=== PATIENT | male | born 1990 | race African-American/Black ===

== ENCOUNTER 2017-02-20 10:40 | Emergency (ER) | payer MEDICAID ==
[~2017-02-20] VITALS: Ht 160 cm; Wt 65.0 kg
[~2017-02-20 10:40] MED LIST: Z.0.NO CURRENT MEDS
[2017-02-20 10:42] VITALS: BP 102/59; PULSE 108; RESP 13; TEMP 98.8; O2SAT 98
--- NOTE | 2017-02-20 15:59 | EKG ---
Date Performed: 02/20/2017 Time Performed: 10:54:49 PTAGE: 26 years EKG: Sinus rhythm WITH SHORT OK INTERVAL MARKED LEFT AXIS DEVIATION ABNORMAL ECG PREVIOUS TRACING : 02/07/2016 00.42 Compared to prior tracing no significant change DOCTOR: Lukas Forte Interpretating Date/Time 02/20/2017 15:58:47
[2017-03-14] MEDS ORDERED: LEVA500T20 PO (04:02)
== END 2017-02-20 18:38 | disposition left against medical advice (07) ==
LOC: NETRI 10:40
DX: R07.9 Chest pain, unspecified (principal); M54.9 Dorsalgia, unspecified; Z53.21 Procedure and treatment not carried out due to patient leaving prior to being seen by health care provider
CPT/HCPCS: 93005; 99281

== ENCOUNTER 2017-02-22 12:03 | Emergency (ER) | payer MEDICAID ==
[2017-02-22] MEDS ORDERED: IOHEXOL 350 MG/ML 10 ML VIAL (for RAD DIAG) IVCONTRAST ONE (12:04)
[2017-02-22 12:11] VITALS: BP 117/69; PULSE 77; RESP 22; O2SAT 100
--- NOTE | 2017-02-22 12:22 | PD ---
HPI Chief Complaint: Respiratory Symptoms Time Seen by Provider: 12:12 Travel History International Travel<30 days: No Contact w/Intl Traveler<30days: No Traveled to known affect area: No History of Present Illness HPI Patient comes in via EMS/shortness of breath began 3 days ago. Patient states he went to a different hospital received breathing treatments and steroids there that seemed to help. Patient reports is given a prescription for the same , but has not gotten filled yet. Patient states that he started getting worse while at work today. Patient received 125 mg of Solu-Medrol and 2 albuterol treatments by EMS en route that seemed to help. Patient reports occasionally having a productive cough for the past 3 days. Patient denies anything making this worse. Denies any fevers, nausea, vomiting, chest pain, abdominal pain, loss or change in bowel or bladder, or headaches. PFSH Past Medical History Neurologic: Yes (stroke at age 3) Immunizations Current: Yes Past Surgical History Body Medical Devices: LEFT EAR REPAIR Ear Surgery: Yes (MASTOID SURGERY A CHILD) Social History Alcohol Use: No Tobacco Use: No Substance Use: Yes (marijuana) Allergies-Medications (Allergen,Severity, Reaction): Coded Allergies: penicillin G (Unverified Allergy, Severe, Anaphylaxis, 02/22/17) Reported Meds & Prescriptions Reported Meds & Active Scripts Active Medrol Dosepak (Methylprednisolone) 4 Mg Dspk 4 Mg PO DIRECTED Per Pharmacist direction Ventolin Hfa 18 GM Inh (Albuterol Sulfate) 90 Mcg/Act Aer 2 Puff INH Q4-6H PRN Zithromax Z-Rigoberto (Azithromycin) 250 Mg Dspk 250 Mg PO DIRECTED 500 MG (2 tabs) day 1, then 1 tab days 2-5. Review of Systems Except as stated in HPI: all other systems reviewed are Neg Physical Exam Narrative GENERAL: Well-developed, well nourished, in no acute distress, and non-ill appearing. SKIN: Focused skin assessment warm and dry. HEAD: Atraumatic. Normocephalic. EYES: Pupils equal and round. EOMI. No scleral icterus. No injection or drainage. ENT: No nasal bleeding or discharge. Mucous membranes pink and moist. NECK: Trachea midline. No JVD. Supple. No nuclear rigidity. CARDIOVASCULAR: Regular rate and rhythm. No murmur appreciated. RESPIRATORY: No accessory muscle use. No respiratory distress. Scant wheezing noted throughout. Breath sounds equal bilaterally. Speaking in full sentences without difficulty. MUSCULOSKELETAL: No obvious deformities. No clubbing. No cyanosis. No edema. Full range of motion. NEUROLOGICAL: Awake and alert. No obvious cranial nerve deficits. Motor grossly within normal limits. Normal speech. PSYCHIATRIC: Appropriate mood and affect; insight and judgment normal. Data Data Last Documented VS Vital Signs Date Time Temp Pulse Resp B/P (MAP) Pulse Ox O2 Delivery O2 Flow Rate FiO2 02/22/17 15:08 90 18 115/74 (88) 98 02/22/17 13:02 Room Air Orders Orders Chest, Single Ap (02/22/17 ) Albuterol-Ipratropium Neb (Duoneb Neb) (02/22/17 12:30) Electrocardiogram (02/22/17 13:00) Basic Metabolic Panel (Bmp) (02/22/17 13:00) Ckmb (Isoenzyme) Profile (02/22/17 13:00) Complete Blood Count With Diff (02/22/17 13:00) Magnesium (Mg) (02/22/17 13:00) Prothrombin Time / Inr (Pt) (02/22/17 13:00) Act Partial Throm Time (Ptt) (02/22/17 13:00) Troponin I (02/22/17 13:00) Ecg Monitoring (02/22/17 13:00) Bilateral Bp Monitoring (02/22/17 13:00) Iv Access Insert/Monitor (02/22/17 13:00) Oximetry (02/22/17 13:00) Oxygen Administration (02/22/17 13:00) Sodium Chloride 0.9% Flush (Ns Flush) (02/22/17 13:00) Ct Pulmonary Angiogram (02/22/17 13:00) CKMB (02/22/17 12:40) CKMB% (02/22/17 12:40) Iohexol 350 Inj (Omnipaque 350 Inj) (02/22/17 12:04) Labs Laboratory Tests Test 02/22/17 12:40 White Blood Count 6.8 TH/MM3 Red Blood Count 4.87 MIL/MM3 Hemoglobin 14.1 GM/DL Hematocrit 42.1 % Mean Corpuscular Volume 86.4 FL Mean Corpuscular Hemoglobin 29.0 PG Mean Corpuscular Hemoglobin Concent 33.6 % Red Cell Distribution Width 13.4 % Platelet Count 189 TH/MM3 Mean Platelet Volume 7.2 FL Neutrophils (%) (Auto) 56.3 % Lymphocytes (%) (Auto) 26.3 % Monocytes (%) (Auto) 15.5 % Eosinophils (%) (Auto) 1.0 % Basophils (%) (Auto) 0.9 % Neutrophils # (Auto) 3.8 TH/MM3 Lymphocytes # (Auto) 1.8 TH/MM3 Monocytes # (Auto) 1.0 TH/MM3 Eosinophils # (Auto) 0.1 TH/MM3 Basophils # (Auto) 0.1 TH/MM3 CBC Comment DIFF FINAL Differential Comment Prothrombin Time 11.8 SEC Prothromb Time International Ratio 1.1 RATIO Activated Partial Thromboplast Time 29.9 SEC Blood Urea Nitrogen 13 MG/DL Creatinine 1.46 MG/DL Random Glucose 82 MG/DL Calcium Level 9.3 MG/DL Magnesium Level 1.8 MG/DL Sodium Level 137 MEQ/L Potassium Level 3.6 MEQ/L Chloride Level 103 MEQ/L Carbon Dioxide Level 22.6 MEQ/L Anion Gap 11 MEQ/L Estimat Glomerular Filtration Rate 71 ML/MIN Total Creatine Kinase 128 U/L Creatine Kinase MB LESS THAN 0.5 NG/ML Troponin I LESS THAN 0.02 NG/ML MDM Medical Decision Making Medical Screen Exam Complete: Yes Emergency Medical Condition: Yes Interpretation(s) Chest x-ray read by the radiologist shows: Hyperinflation more notably in the lower lobes. No evidence for an infiltrate. EKG reviewed by Dr. Becerra shows sinus rhythm with ventricular rate of 75. No STEMI. CTA read by the radiologist shows: Patchy mild nodular infiltrates bilaterally. No evidence of pulmonary embolism. Mild probable reactive hilar sharif enlargement, right worse than left Differential Diagnosis Pneumonia, bronchitis, COPD exacerbation, asthma exacerbation, other Narrative Course Patient was seen and examined. Chest x-ray and DuoNeb was ordered. 1300 patient reassessed after receiving a DuoNeb treatment reports feeling like the DuoNeb made his shortness of breath worse and feels that he struggling to breathe. O2 sat noted to be 100% on room air. We'll check additional testing to rule out PE. Patients symptom complex is consistent with bronchitis/Pneumonia. The patient is non-ill appearing and is in no respiratory distress and comfortable. The patient moves air well and oxygen saturations are normal. CTA was negative for PE, but revealed evidence of pneumonia. The patient looks great and has no significant co morbidities and may be discharged home on outpatient therapy. Plan of care and management were discussed with the patient who agreed with plan. The patient was instructed to follow up with their physician and instructed to return if worsens, progressively worsening shortness of breath or difficulty breathing, persistent fever, chest pains or discomfort, inability to keep medication or fluids down with or without vomiting, or as needed or unable to establish follow up within a timely manner. Patient in no obvious distress upon re-evaluation. All pertinent laboratory/ Radiology result(s) discussed with patient/family. Discussed patient with Dr. Becerra prior discharge, who is in agreement with plan of care and disposition. Patient was asked if they wanted to speak to my attending, which the patient did not wish to do at this time. Any questions/concerns in reference to patient diagnosis/condition discussed and clarified prior to patient's discharge. Reinforced sheer importance of close follow up with patient 's primary physician or primary care clinic. Instructed patient to return to ED immediately, if symptoms return/worsen. Patient showed understanding of above instructions. Further instructions and recommendations were detailed in discharge paperwork. Patient ambulated without difficulty out of ED at discharge. Diagnosis Primary Impression: Bilateral pneumonia Qualified Codes: J18.9 - Pneumonia, unspecified organism Additional Impression: Lymphoid hyperplasia, reactive Referrals: [facility] Patient Instructions: Community Acquired Pneumonia (ED), General Instructions Additional Instructions: Follow-up with your primary care physician next week for evaluation. Take all medication as prescribed. Use [id number] Tylenol and/or ibuprofen as needed for pain and/or fever. Follow instructions on the packaging. Return to the emergency department if symptoms get worse. Med/Other Pt SpecificInfo: Prescription(s) given Scripts Methylprednisolone Dosepak (Medrol Dosepak) 4 Mg Dspk 4 MG PO DIRECTED, #1 DSPK 0 Refills Per Pharmacist direction Prov: Gómez Becerra MD 02/22/17 Albuterol 18 GM Inh (Ventolin Hfa 18 GM Inh) 90 Mcg/Act Aer 2 PUFF INH Q4-6H Y for SHORTNESS OF BREATH, #1 INHALER 0 Refills Prov: Gómez Becerra MD 02/22/17 Azithromycin (Zithromax Z-Rigoberto) 250 Mg Dspk 250 MG PO DIRECTED for Infection, #1 DSPK 0 Refills 500 MG (2 tabs) day 1, then 1 tab days 2-5. Prov: Gómez Becerra MD 02/22/17 Disposition: 01 DISCHARGE HOME Condition: Stable Graham Tobar Feb 22, 2017 12:22
[2017-02-22] MEDS ORDERED: RESP: ALBUTEROL 2.5 MG/IPRATROPIUM 0.5 MG NEB (SCH) INH ONE (12:30)
--- NOTE | 2017-02-22 12:52 | RADRPT ---
EXAM DATE/TIME: 02/22/2017 12:42 [facility] COMPARISON: No previous studies available for comparison. INDICATIONS : Chest pain. MEDICAL HISTORY : None. SURGICAL HISTORY : None. ENCOUNTER: Initial ACUITY: 3 days PAIN SCORE: 8/10 LOCATION: Bilateral chest FINDINGS: PA and lateral views of the chest demonstrates hyperinflation more notably in the lower lobes. No infiltrates are seen. Heart is normal in size. The mediastinal contours are unremarkable. Osseous structures are intact. CONCLUSION: Hyperinflation more notably in the lower lobes. No evidence for an infiltrate. Dmitriy Fair MD on February 22, 2017 at 12:50 Board Certified Radiologist. This report was verified electronically.
[2017-02-22 13:00] VITALS: BP_SYST 117; BP_SYST 118; BP_DIAS 79; BP_DIAS 82; PULSE 94; RESP 22; O2SAT 100
[2017-02-22] MEDS ORDERED: SODIUM CHLORIDE 0.9% FLUSH 10 ML FLUSH IVF PRN (13:00)
[2017-02-22 13:02] VITALS: O2SAT 99
[2017-02-22 13:23] LABS: AUTOMATED NEUTROPHIL # 3.8 TH/MM3 (1.8-7.7); BASOPHIL # 0.1 TH/MM3 (0-0.2); BASOPHIL % 0.9 % (0.0-2.0); EOSINOPHIL # 0.1 TH/MM3 (0-0.4); HEMATOCRIT 42.1 % (39.0-51.0); HEMO FLAGS DIFF FINAL; LYMPH % 26.3 % (9.0-44.0); LYMPHOCYTE # 1.8 TH/MM3 (1.0-4.8); MEAN CELL VOLUME 86.4 FL (80.0-100.0); MEAN CORPUSCULAR HGB CONC 33.6 % (32.0-36.0); MONO % 15.5 % (0.0-8.0); NEUT % 56.3 % (16.0-70.0); PLATELET COUNT 189 TH/MM3 (150-450); RED BLOOD COUNT 4.87 MIL/MM3 (4.50-5.90); RED CELL DISTRIBUTION WIDTH 13.4 % (11.6-17.2); WHITE BLOOD COUNT 6.8 TH/MM3 (4.0-11.0)
[2017-02-22 13:31] LABS: APTT (PATIENT) 29.9 SEC (24.3-30.1); INTERNATIONAL NORMALIZED RATIO 1.1 RATIO; PROTHROMBIN TIME - PATIENT 11.8 SEC (9.8-11.6)
[2017-02-22 13:50] LABS: CREATINE KINASE 128 U/L (39-308)
[2017-02-22 13:51] LABS: ANION GAP 11 MEQ/L (5-15); BICARBONATE 22.6 MEQ/L (21.0-32.0); BLOOD UREA NITROGEN 13 MG/DL (7-18); CHLORIDE 103 MEQ/L (98-107); GLOMERULAR FILTRATION RATE 71 ML/MIN (>89); MAGNESIUM 1.8 MG/DL (1.5-2.5); POTASSIUM 3.6 MEQ/L (3.5-5.1); SODIUM (NA) 137 MEQ/L (136-145)
[2017-02-22 14:02] LABS: CKMB LESS THAN 0.5 NG/ML (0.5-3.6)
--- NOTE | 2017-02-22 14:30 | RADRPT ---
EXAM DATE/TIME: 02/22/2017 14:01 [facility] COMPARISON: No previous studies available for comparison. INDICATIONS : Short of breath for three days. IV CONTRAST: 50 cc Omnipaque 350 (iohexol) IV RADIATION DOSE: 20.40 CTDIvol (mGy) MEDICAL HISTORY : Stroke. SURGICAL HISTORY : None. ENCOUNTER: Initial ACUITY: 3 days PAIN SCALE: 5/10 LOCATION: Bilateral chest TECHNIQUE: Volumetric scanning of the chest was performed using a pulmonary embolism protocol MIP images were re constructed. Using automated exposure control and adjustment of the mA and/or kV according to patien t size, radiation dose was kept as low as reasonably achievable to obtain optimal diagnostic quality images. DICOM format image data is available electronically for review and comparison. Follow-up recommendations for detected pulmonary nodules are based at a minimum on nodule size and pa tient risk factors according to Fleischner Society Guidelines. FINDINGS: PULMONARY ARTERIES: No filling defects are seen in the pulmonary arteries through the segmental level. LUNGS: There is patchy mild nodular infiltrate present mainly in the perihilar regions and lower lung zones. No consolidative airspace infiltrate. PLEURAE: There is no pleural thickening or pleural effusion. MEDIASTINUM: There is mild prominence of the hilar sharif tissues, right worse than left. No central mediastinal ad enopathy is appreciated. MUSCULOSKELETAL: Within normal limits for patient age. MISCELLANEOUS: The visualized upper abdominal organs demonstrate no acute abnormality. CONCLUSION: Patchy mild nodular infiltrates bilaterally. No evidence of pulmonary embolism. Mild probable reactiv e hilar sharif enlargement, right worse than left Govind Carlson MD on February 22, 2017 at 14:24 Board Certified Radiologist. This report was verified electronically.
[2017-02-22] MEDS ORDERED: MEDR4PAK PO (14:41)
[2017-02-22] MEDS ORDERED: ZITHTAB PO (14:41)
[2017-02-22] MEDS ORDERED: VENTAER INH (14:41)
[2017-02-22 15:08] VITALS: BP 115/74
--- NOTE | 2017-02-23 14:49 | EKG ---
Date Performed: 02/22/2017 Time Performed: 12:27:37 PTAGE: 26 years EKG: Sinus rhythm WITH SINUS ARRHYTHMIA WITH SHORT NC INTERVAL POSSIBLE RIGHT VENTRICULAR CONDUCTION DELAY LEFT ANTERI OR FASCICULAR BLOCK ABNORMAL ECG PREVIOUS TRACING : 02/20/2017 10.54 Compared to prior tracing no significant change DOCTOR: Nick Holguin Interpretating Date/Time 02/23/2017 14:47:55
[2017-03-14] MEDS ORDERED: LEVA500T20 PO (04:02)
== END 2017-02-22 15:22 | disposition home or self-care (01) ==
LOC: NEPC 12:03
DX: J18.9 Pneumonia, unspecified organism (principal); R59.9 Enlarged lymph nodes, unspecified; R94.31 Abnormal electrocardiogram [ECG] [EKG]
CPT/HCPCS: 71010; 71275; 80048; 82550; 82552; 83735; 84484; 85025; 85610; 85730; 93005; 94664; 99285; Q9967

== ENCOUNTER 2017-02-28 23:37 | Emergency (ER) | payer MEDICAID ==
[~2017-02-28] VITALS: Ht 160 cm; Wt 62.0 kg
[~2017-02-28 23:37] MED LIST changes: +MEDR4PAK PO; +VENTAER INH; -Z.0.NO CURRENT MEDS; +ZITHTAB PO
[2017-02-28 23:40] VITALS: BP 118/63; PULSE 118; RESP 18; TEMP 98.9; O2SAT 98
[2017-03-01 00:25] VITALS: BP 120/71; PULSE 90; RESP 18; O2SAT 99
[2017-03-01] MEDS ORDERED: SODIUM CHLOR 0.9% 1000 ML INJ 1,000 ML IV ONE (00:45)
[2017-03-01] MEDS ORDERED: SODIUM CHLORIDE 0.9% FLUSH 10 ML FLUSH IVF PRN (00:45)
--- NOTE | 2017-03-01 01:05 | RADRPT ---
EXAM DATE/TIME: 03/01/2017 00:50 [facility] COMPARISON: CHEST SINGLE AP, February 22, 2017, 12:42. INDICATIONS : Shortness of breath. MEDICAL HISTORY : None. SURGICAL HISTORY : None. ENCOUNTER: Initial ACUITY: 1 day PAIN SCORE: 0/10 LOCATION: Bilateral chest FINDINGS: A single view of the chest demonstrates the lungs to be symmetrically aerated without evidence of mas s, infiltrate or effusion. The cardiomediastinal contours are unremarkable. Osseous structures are intact. CONCLUSION: No acute disease. Govind Carlson MD on March 01, 2017 at 1:03 Board Certified Radiologist. This report was verified electronically.
[2017-03-01 01:12] LABS: AUTOMATED NEUTROPHIL # 14.6 TH/MM3 (1.8-7.7); BASOPHIL % 0.1 % (0.0-2.0); EOSINOPHIL % 0.2 % (0.0-4.0); HEMATOCRIT 41.7 % (39.0-51.0); HEMO FLAGS DIFF FINAL; LYMPH % 9.5 % (9.0-44.0); LYMPHOCYTE # 1.7 TH/MM3 (1.0-4.8); MEAN CELL VOLUME 86.8 FL (80.0-100.0); MEAN CORPUSCULAR HEMOGLOBIN 28.8 PG (27.0-34.0); MEAN CORPUSCULAR HGB CONC 33.1 % (32.0-36.0); MONO % 7.1 % (0.0-8.0); NEUT % 83.1 % (16.0-70.0); PLATELET COUNT 303 TH/MM3 (150-450); RED BLOOD COUNT 4.81 MIL/MM3 (4.50-5.90); RED CELL DISTRIBUTION WIDTH 13.4 % (11.6-17.2); WHITE BLOOD COUNT 17.5 TH/MM3 (4.0-11.0)
--- NOTE | 2017-03-01 01:21 | PD ---
HPI Chief Complaint: Chest Pain Time Seen by Provider: 00:33 Travel History International Travel<30 days: No Contact w/Intl Traveler<30days: No Traveled to known affect area: No History of Present Illness HPI 26-year-old male presents to the emergency department by private transportation for complaint of shaking chill. Patient recently diagnosed with pneumonia and completed a course of azithromycin. Patient also was given Ventolin inhaler and Medrol Dosepak. Patient denies fever. Patient states that he feels improved at this time but not back to normal. Patient denies other concerns or complaints. Patient is unable to identify exacerbating or alleviating factors. 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3, decompressed nerves) Diminished Hearing: No Neurologic: Yes (stroke at age 3) Immunizations Current: Yes Past Surgical History Body Medical Devices: LEFT EAR REPAIR Ear Surgery: Yes (MASTOID SURGERY A CHILD) Social History Alcohol Use: No Tobacco Use: No Substance Use: Yes (marijuana) Allergies-Medications (Allergen,Severity, Reaction): Coded Allergies: penicillin G (Unverified Allergy, Severe, Anaphylaxis, 02/28/17) Reported Meds & Prescriptions Reported Meds & Active Scripts Active Ventolin Hfa 18 GM Inh (Albuterol Sulfate) 90 Mcg/Act Aer 2 Puff INH Q4-6H PRN Review of Systems Except as stated in HPI: all other systems reviewed are Neg General / Constitutional: Positive: Chills, No: Fever HENT: No: Congestion Cardiovascular: Positive: Chest Pain or Discomfort Respiratory: Positive: Shortness of Breath Gastrointestinal: No: Abdominal Pain Genitourinary: No: Flank Pain Skin: No Rash Neurologic: No: Weakness Psychiatric: No: Anxiety Hematologic/Lymphatic: No: Lymph Node Enlargement Physical Exam Narrative GENERAL: Well-developed well-nourished male in no acute distress no respiratory distress SKIN: Warm and dry. HEAD: Normocephalic. EYES: No scleral icterus. No injection or drainage. NECK: Supple, trachea midline. No JVD or lymphadenopathy. CARDIOVASCULAR: Regular rate and rhythm without murmurs, gallops, or rubs. RESPIRATORY: Breath sounds equal bilaterally. No accessory muscle use. GASTROINTESTINAL: Abdomen soft, non-tender, nondistended. MUSCULOSKELETAL: No cyanosis, or edema. BACK: Nontender without obvious deformity. No CVA tenderness. Data Data Last Documented VS Vital Signs Date Time Temp Pulse Resp B/P (MAP) Pulse Ox O2 Delivery O2 Flow Rate FiO2 03/01/17 01:37 98.0 69 18 108/66 (80) 100 Room Air Orders Orders Complete Blood Count With Diff (03/01/17 00:33) Comprehensive Metabolic Panel (03/01/17 00:33) Troponin I (03/01/17 00:33) Iv Access Insert/Monitor (03/01/17 00:33) Electrocardiogram (03/01/17 00:33) Ecg Monitoring (03/01/17 00:33) Oximetry (03/01/17 00:33) Oxygen Administration (03/01/17 00:33) Chest, Single Ap (03/01/17 00:33) Sodium Chloride 0.9% Flush (Ns Flush) (03/01/17 00:45) Blood Culture (03/01/17 00:33) Lactic Acid (03/01/17 00:33) Sodium Chlor 0.9% 1000 Ml Inj (Ns 1000 M (03/01/17 00:45) Ketorolac Inj (Toradol Inj) (03/01/17 01:30) Urinalysis - C+S If Indicated (03/01/17 01:21) Doxycycline (Vibramycin) (03/01/17 02:15) Sodium Chlorid 0.9% 500 Ml Inj (Ns 500 M (03/01/17 02:15) Ed Discharge Order (03/01/17 03:37) Labs Laboratory Tests Test 03/01/17 00:45 03/01/17 01:20 White Blood Count 17.5 TH/MM3 Red Blood Count 4.81 MIL/MM3 Hemoglobin 13.8 GM/DL Hematocrit 41.7 % Mean Corpuscular Volume 86.8 FL Mean Corpuscular Hemoglobin 28.8 PG Mean Corpuscular Hemoglobin Concent 33.1 % Red Cell Distribution Width 13.4 % Platelet Count 303 TH/MM3 Mean Platelet Volume 6.7 FL Neutrophils (%) (Auto) 83.1 % Lymphocytes (%) (Auto) 9.5 % Monocytes (%) (Auto) 7.1 % Eosinophils (%) (Auto) 0.2 % Basophils (%) (Auto) 0.1 % Neutrophils # (Auto) 14.6 TH/MM3 Lymphocytes # (Auto) 1.7 TH/MM3 Monocytes # (Auto) 1.2 TH/MM3 Eosinophils # (Auto) 0.0 TH/MM3 Basophils # (Auto) 0.0 TH/MM3 CBC Comment DIFF FINAL Differential Comment Blood Urea Nitrogen 19 MG/DL Creatinine 1.20 MG/DL Random Glucose 131 MG/DL Total Protein 7.8 GM/DL Albumin 4.0 GM/DL Calcium Level 8.8 MG/DL Alkaline Phosphatase 83 U/L Aspartate Amino Transf (AST/SGOT) 14 U/L Alanine Aminotransferase (ALT/SGPT) 28 U/L Total Bilirubin 0.2 MG/DL Sodium Level 138 MEQ/L Potassium Level 3.4 MEQ/L Chloride Level 104 MEQ/L Carbon Dioxide Level 27.4 MEQ/L Anion Gap 7 MEQ/L Estimat Glomerular Filtration Rate 89 ML/MIN Lactic Acid Level 1.5 mmol/L Troponin I LESS THAN 0.02 NG/ML Urine Color LIGHT-YELLOW Urine Turbidity CLEAR Urine pH 5.5 Urine Specific [place] 1.005 Urine Protein NEG mg/dL Urine Glucose (UA) NEG mg/dL Urine Ketones NEG mg/dL Urine Occult Blood NEG Urine Nitrite NEG Urine Bilirubin NEG Urine Urobilinogen LESS THAN 2.0 MG/DL Urine Leukocyte Esterase NEG Urine RBC LESS THAN 1 /hpf Urine WBC 1 /hpf Microscopic Urinalysis Comment CULT NOT INDICATED MDM Medical Decision Making Medical Screen Exam Complete: Yes Emergency Medical Condition: Yes Medical Record Reviewed: Yes Interpretation(s) EKG: Normal sinus rhythm rate 66-ventricular conduction delay no acute ST elevation or injury pattern or ectopy noted Differential Diagnosis Pneumonia, bronchitis, PE, pneumothorax, atypical chest pain, viral syndrome, dehydration Narrative Course Patient placed on group activities aide pulse oximetry IV access obtained specimens collected and sent for resulting patient given fluid hydration Patient resting comfortably given additional bolus of normal saline and oral antibiotic Patient reports asymptomatic no shortness of breath no chest discomfort no wheezing no chills no myalgias or arthralgias. Patient is stable for outpatient management and follow-up with primary care provider. Sepsis Criteria SIRS Criteria (2 or more): Heart rate over 90, WBC > 34228, < 4000 or > 10% bands Diagnosis Primary Impression: Bronchitis Additional Impression: Pneumonia Referrals: Primary Care Physician call for appointment Patient Instructions: General Instructions Additional Instructions: Increase fluid hydration No work 2 days Monitor temperature every 4 hours with thermometer and take as needed acetaminophen/Tylenol every 4 hours for fever 100.4 days Fahrenheit or greater; may take ibuprofen/Advil 600 mg as often as every 6 hours for fever 100.4F or greater Complete the course of antibiotic as prescribed Return to the emergency department for pain fever or any concerns Follow-up with your primary care provider Continue to use inhaler as prescribed as needed for wheezing or shortness of breath. Med/Other Pt SpecificInfo: Prescription(s) given Scripts Doxycycline Hyclate (Doxycycline Hyclate) 100 Mg Cap 100 MG PO BID for Infection for 5 Days, #10 CAP 0 Refills Prov: Dhara Cannon MD 03/01/17 Disposition: 01 DISCHARGE HOME Condition: Stable Dhara Cannon MD Mar 01, 2017 01:21
[2017-03-01 01:25] LABS: ALT (GPT) 28 U/L (12-78); ANION GAP 7 MEQ/L (5-15); AST (GOT) 14 U/L (15-37); BICARBONATE 27.4 MEQ/L (21.0-32.0); BLOOD UREA NITROGEN 19 MG/DL (7-18); CHLORIDE 104 MEQ/L (98-107); GLOMERULAR FILTRATION RATE 89 ML/MIN (>89); POTASSIUM 3.4 MEQ/L (3.5-5.1); SODIUM (NA) 138 MEQ/L (136-145)
[2017-03-01 01:30] LABS: ALKALINE PHOSPHATASE 83 U/L (45-117); TOTAL BILIRUBIN ADULT 0.2 MG/DL (0.2-1.0)
[2017-03-01] MEDS ORDERED: KETOROLAC TROMETHAMINE 30 MG/ML (IVP) VIAL IV PUSH ONE (01:30)
[2017-03-01 01:37] VITALS: BP 108/66; PULSE 69; RESP 18; TEMP 98; O2SAT 100
[2017-03-01 01:53] LABS: BLOOD, URINE NEG (NEG); GLUCOSE,URINE NEG (NEG); KETONE, URINE NEG (NEG); NITRITE,URINE NEG (NEG); PH, URINE 5.5 (5.0-8.5); URINE COLOR LIGHT-YELLOW (YELLW/STRAW)
[2017-03-01 01:54] LABS: COMMENT (UR) CULT NOT INDICATED; CULTURE IF INDICATED CULT NOT INDICATED
[2017-03-01] MEDS ORDERED: DOXYCYCLINE HYCLATE 100 MG CAP PO ONE (02:15)
[2017-03-01] MEDS ORDERED: SODIUM CHLORID 0.9% 500 ML INJ 500 ML IV ONE (02:15)
[2017-03-01] MEDS ORDERED: DOXY100C PO (03:39)
--- NOTE | 2017-03-01 15:05 | EKG ---
Date Performed: 03/01/2017 Time Performed: 01:10:15 PTAGE: 26 years EKG: Sinus rhythm WITH SHORT NE INTERVAL POSSIBLE RIGHT VENTRICULAR CONDUCTION DELAY BORDERLINE ECG PREVIOUS TRACING : 02/22/2017 12.27 Compared to prior tracing no significant change DOCTOR: Omar Pack Interpretating Date/Time 03/01/2017 15:04:01
== END 2017-03-01 04:07 | disposition home or self-care (01) ==
LOC: NEPC 23:37
DX: J40 Bronchitis, not specified as acute or chronic (principal)
CPT/HCPCS: 71010; 80053; 81001; 83605; 84484; 85025; 87040; 93005; 96361; 96374; 99285; J1885; J7030; J7040

== ENCOUNTER 2017-03-14 00:08 | Emergency (ER) | payer MEDICAID, OTHER ==
[~2017-03-14] VITALS: Ht 160 cm; Wt 62.2 kg
[~2017-03-14 00:08] MED LIST changes: +DOXY100C PO; -MEDR4PAK PO; -ZITHTAB PO
[2017-03-14 00:09] VITALS: BP 142/79; PULSE 91; RESP 15; TEMP 98.4; O2SAT 99
[2017-03-14] MEDS ORDERED: SODIUM CHLORIDE 0.9% FLUSH 10 ML FLUSH IVF PRN (02:30)
[2017-03-14] MEDS ORDERED: KETOROLAC TROMETHAMINE 30 MG/ML (IVP) VIAL IV PUSH ONE (02:30)
[2017-03-14 03:03] LABS: BASOPHIL # 0.1 TH/MM3 (0-0.2); EOSINOPHIL # 0.1 TH/MM3 (0-0.4); EOSINOPHIL % 2.1 % (0.0-4.0); HEMATOCRIT 40.3 % (39.0-51.0); HEMO FLAGS DIFF FINAL; LYMPH % 23.6 % (9.0-44.0); LYMPHOCYTE # 1.4 TH/MM3 (1.0-4.8); MEAN CORPUSCULAR HEMOGLOBIN 29.6 PG (27.0-34.0); MEAN CORPUSCULAR HGB CONC 33.6 % (32.0-36.0); MONO % 8.7 % (0.0-8.0); NEUT % 64.6 % (16.0-70.0); PLATELET COUNT 209 TH/MM3 (150-450); RED BLOOD COUNT 4.58 MIL/MM3 (4.50-5.90); RED CELL DISTRIBUTION WIDTH 13.7 % (11.6-17.2); WHITE BLOOD COUNT 6.1 TH/MM3 (4.0-11.0)
--- NOTE | 2017-03-14 03:13 | RADRPT ---
EXAM DATE/TIME: 03/14/2017 02:45 [facility] COMPARISON: CHEST SINGLE AP, March 01, 2017, 0:50. CT PULMONARY ANGIOGRAM, February 22, 2017, 14:01. INDICATIONS : Chest pain. Tachycardia. MEDICAL HISTORY : Stroke. SURGICAL HISTORY : None. ENCOUNTER: Initial ACUITY: 1 day PAIN SCORE: 1/10 LOCATION: Bilateral chest FINDINGS: A single view of the chest demonstrates minimal increased density in the left upper lobe. Right lung clear. Heart normal in size The cardiomediastinal contours are unremarkable. Osseous structures are intact. CONCLUSION: Suspect minimal infiltrate left upper lobe. Dmitriy Fair MD on March 14, 2017 at 3:10 Board Certified Radiologist. This report was verified electronically.
[2017-03-14 03:14] LABS: PROTHROMBIN TIME - PATIENT 10.9 SEC (9.8-11.6)
[2017-03-14 03:25] LABS: ANION GAP 6 MEQ/L (5-15); BICARBONATE 27.4 MEQ/L (21.0-32.0); BLOOD UREA NITROGEN 18 MG/DL (7-18); CHLORIDE 106 MEQ/L (98-107); GLOMERULAR FILTRATION RATE 85 ML/MIN (>89); MAGNESIUM 2.5 MG/DL (1.5-2.5); POTASSIUM 3.8 MEQ/L (3.5-5.1); SODIUM (NA) 139 MEQ/L (136-145)
[2017-03-14] MEDS ORDERED: AZITHROMYCIN 250 MG TAB PO ONE (03:45)
--- NOTE | 2017-03-14 03:52 | PD ---
HPI Chief Complaint: Respiratory Symptoms Time Seen by Provider: 02:29 Travel History International Travel<30 days: No Contact w/Intl Traveler<30days: No Traveled to known affect area: No History of Present Illness HPI 26-year-old male came to the emergency room with history of substernal chest pain worse when he laid down with shortness of breath and palpitations. This was followed by a sudden tremors and muscle fasciculations. Patient says this started suddenly last night. He also says that he was in the emergency room two week ago for shortness of breath and was diagnosed with pneumonia. He was given Zithromax and doxycycline. Patient says that after the course was finished he did well for almost a week up until last night. Vital signs were stable in triage. Currently patient seems comfortable while he is talking to me. 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 No known sick contacts. He smokes weed daily. No history of fever or chills. [facility] Past Medical History Narrative Medical List of his past medical, surgical, social and family history is reviewed from the nursing note. 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 Reported Meds & Prescriptions Reported Meds & Active Scripts Active Levaquin (Levofloxacin) 500 Mg Tablet 500 Mg PO DAILY 10 Days Narrative Medication List of his home medications reviewed from the nursing note. Review of Systems Except as stated in HPI: all other systems reviewed are Neg Cardiovascular: Positive: Chest Pain or Discomfort, Palpitations Physical Exam Narrative GENERAL: Awake, alert, anxious, no obvious distress SKIN: Focused skin assessment warm/dry. HEAD: Atraumatic. Normocephalic. EYES: Pupils equal and round. No scleral icterus. No injection or drainage. ENT: No nasal bleeding or discharge. Mucous membranes pink and moist. NECK: Trachea midline. No JVD. CARDIOVASCULAR: Regular rate and rhythm. No murmur appreciated. RESPIRATORY: No accessory muscle use. Clear to auscultation. Breath sounds equal bilaterally. GASTROINTESTINAL: Abdomen soft, non-tender, nondistended. Hepatic and splenic margins not palpable. MUSCULOSKELETAL: No obvious deformities. No clubbing. No cyanosis. No edema. NEUROLOGICAL: Awake and alert. No obvious cranial nerve deficits. Motor grossly within normal limits. Normal speech. PSYCHIATRIC: Appropriate mood and affect; insight and judgment normal. Data Data Last Documented VS Orders Orders Electrocardiogram (03/14/17 02:29) Basic Metabolic Panel (Bmp) (03/14/17 02:29) Complete Blood Count With Diff (03/14/17 02:29) D-Dimer (03/14/17 02:29) Magnesium (Mg) (03/14/17 02:29) Prothrombin Time / Inr (Pt) (03/14/17 02:29) Troponin I (03/14/17 02:29) Chest, Single Ap (03/14/17 02:29) Ecg Monitoring (03/14/17 02:29) Bilateral Bp Monitoring (03/14/17 02:29) Iv Access Insert/Monitor (03/14/17 02:29) Oximetry (03/14/17 02:29) Oxygen Administration (03/14/17 02:29) Sodium Chloride 0.9% Flush (Ns Flush) (03/14/17 02:30) Ketorolac Inj (Toradol Inj) (03/14/17 02:30) Azithromycin (Zithromax) (03/14/17 03:45) Levofloxacin (Levaquin) (03/14/17 04:00) Ed Discharge Order (03/14/17 03:51) Labs Laboratory Tests Test 03/14/17 02:50 White Blood Count 6.1 TH/MM3 Red Blood Count 4.58 MIL/MM3 Hemoglobin 13.5 GM/DL Hematocrit 40.3 % Mean Corpuscular Volume 88.0 FL Mean Corpuscular Hemoglobin 29.6 PG Mean Corpuscular Hemoglobin Concent 33.6 % Red Cell Distribution Width 13.7 % Platelet Count 209 TH/MM3 Mean Platelet Volume 7.2 FL Neutrophils (%) (Auto) 64.6 % Lymphocytes (%) (Auto) 23.6 % Monocytes (%) (Auto) 8.7 % Eosinophils (%) (Auto) 2.1 % Basophils (%) (Auto) 1.0 % Neutrophils # (Auto) 4.0 TH/MM3 Lymphocytes # (Auto) 1.4 TH/MM3 Monocytes # (Auto) 0.5 TH/MM3 Eosinophils # (Auto) 0.1 TH/MM3 Basophils # (Auto) 0.1 TH/MM3 CBC Comment DIFF FINAL Differential Comment Prothrombin Time 10.9 SEC Prothromb Time International Ratio 1.0 RATIO D-Dimer Quantitative (PE/DVT) LESS THAN 0.19 MG/L FEU Blood Urea Nitrogen 18 MG/DL Creatinine 1.26 MG/DL Random Glucose 80 MG/DL Calcium Level 9.1 MG/DL Magnesium Level 2.5 MG/DL Sodium Level 139 MEQ/L Potassium Level 3.8 MEQ/L Chloride Level 106 MEQ/L Carbon Dioxide Level 27.4 MEQ/L Anion Gap 6 MEQ/L Estimat Glomerular Filtration Rate 85 ML/MIN Troponin I LESS THAN 0.02 NG/ML MDM Medical Decision Making Medical Screen Exam Complete: Yes Emergency Medical Condition: Yes Medical Record Reviewed: Yes Interpretation(s) Twelve-lead EKG was reviewed by me. Normal sinus rhythm, left axis deviation, J -point elevation, peaked T waves, bradycardia. Heart rate of 55 bpm. Differential Diagnosis Pericarditis, PE, ACS, pneumonia Narrative Course 3:30 AM blood test results are back including the d-dimer and they're all negative. Chest x-rays read by the radiologist as a small infiltrate in left upper lobe. I have given him a dose of Levaquin and prescription to go home with. I explained all the test results at length to the patient and answered all his questions to the best of my ability. Patient will be discharged home. Procedures EKG Prior to Arrival: No Diagnosis Primary Impression: Palpitations Additional Impressions: Pneumonia Qualified Codes: J18.1 - Lobar pneumonia, unspecified organism Atypical chest pain Referrals: Primary Care Physician 3 days Additional Instructions: Please return to the ER if the condition worsens or any other new concerns. Otherwise follow-up with your primary care next couple days. Take the antibiotic as per the prescription direction. He should not be smoking until his symptoms are completely better and antibiotic course is finished. Try to take yogurt or probiotics along with the antibiotics since this is here third course of antibiotic. Med/Other Pt SpecificInfo: Prescription(s) given Scripts Levofloxacin (Levaquin) 500 Mg Tablet 500 MG PO DAILY for Infection for 10 Days, #10 TAB 0 Refills Prov: Rody Calle MD 03/14/17 Disposition: 01 DISCHARGE HOME Condition: Stable Rody Calle MD Mar 14, 2017 03:52
[2017-03-14] MEDS ORDERED: LEVOFLOXACIN 500 MG TAB PO ONE (04:00)
[2017-03-14] MEDS ORDERED: LEVA500T33 PO (04:02)
[2017-03-14 04:10] VITALS: BP 117/65; PULSE 62; RESP 18; O2SAT 100
--- NOTE | 2017-03-14 15:08 | EKG ---
Date Performed: 03/14/2017 Time Performed: 01:37:50 PTAGE: 26 years EKG: SINUS BRADYCARDIA ST ELEVATION, PROBABLY EARLY REPOLARIZATION BORDERLINE ECG Compared to pr ior tracing no significant change PREVIOUS TRACING : 03/01/2017 01.10 DOCTOR: Jason Kimbrough Interpretating Date/Time 03/14/2017 15:06:57
== END 2017-03-14 04:20 | disposition home or self-care (01) ==
LOC: NEPC 00:08
DX: R00.2 Palpitations (principal); J18.1 Lobar pneumonia, unspecified organism; R07.89 Other chest pain; R00.1 Bradycardia, unspecified
CPT/HCPCS: 71010; 80048; 83735; 84484; 85025; 85379; 85610; 93005; 96374; 99285; J1885

== ENCOUNTER 2017-05-09 19:35 | Emergency (ER) | payer MEDICAID, OTHER ==
[~2017-05-09 19:35] MED LIST changes: -DOXY100C PO; +LEVA500T33 PO; -VENTAER INH
[2017-05-09 19:37] VITALS: BP 149/73; PULSE 71; RESP 16; TEMP 98.3; O2SAT 100
--- NOTE | 2017-05-09 20:35 | RADRPT ---
EXAM DATE/TIME: 05/09/2017 20:03 [facility] COMPARISON: No previous studies available for comparison. INDICATIONS : Chest pain, shortness of breath. MEDICAL HISTORY : Quit smoking a month ago. History of pneumonia. SURGICAL HISTORY : None. ENCOUNTER: Initial ACUITY: 2 weeks PAIN SCORE: 10/10 LOCATION: chest midline. FINDINGS: PA and lateral views of the chest demonstrate the lungs to be symmetrically aerated without evidence of mass, infiltrate or effusion. The cardiomediastinal contours are unremarkable. Osseous structure s are intact. CONCLUSION: No acute cardiopulmonary disease. Eliezer Gaxiola MD on May 09, 2017 at 20:32 Board Certified Radiologist. This report was verified electronically.
--- NOTE | 2017-05-09 20:43 | PD ---
HPI Chief Complaint: Chest Pain Time Seen by Provider: 20:24 Travel History International Travel<30 days: No Contact w/Intl Traveler<30days: No Traveled to known affect area: No History of Present Illness HPI The patient is a 26-year-old Arlene male who presents emergency department for chest pain. The patient states she was diagnosed with pneumonia approximately 6 weeks ago. The patient states intermittently he has had some chest pain which is sharp. However, over the last several weeks the pain has been substernal, burning, sharp, and worse with lying supine. He denies any foul taste in the mouth, does note mild nausea without any vomiting. He denies any known history of coronary artery disease, hypertension, hyperlipidemia, diabetes, or tobacco use. He does smoke marijuana occasionally. He denies any known history of GERD or esophageal spasm. He is complaining of pain upon arrival. He denies any current cough, fever, chills, or sweats. He denies any exertional symptoms. 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3, decompressed nerves) Diminished Hearing: No Neurologic: Yes (stroke at age 3) Immunizations Current: Yes Pneumonia: Yes Past Surgical History Body Medical Devices: LEFT EAR REPAIR Ear Surgery: Yes (MASTOID SURGERY A CHILD) Social History Alcohol Use: No Tobacco Use: No Substance Use: Yes (marijuana daily) Allergies-Medications (Allergen,Severity, Reaction): Coded Allergies: penicillin G (Unverified Allergy, Severe, Anaphylaxis, 03/14/17) Reported Meds & Prescriptions Reported Meds & Active Scripts Active Levaquin (Levofloxacin) 500 Mg Tablet 500 Mg PO DAILY 10 Days Review of Systems Except as stated in HPI: all other systems reviewed are Neg General / Constitutional: No: Fever, Chills Cardiovascular: Positive: Chest Pain or Discomfort, No: Diaphoresis, Dyspnea on exertion Respiratory: No: Shortness of Breath Gastrointestinal: Positive: Nausea, No: Vomiting, Diarrhea, Abdominal Pain, Indigestion, Dysphagia, Loss of Appetite Physical Exam Narrative GENERAL: Awake, alert, pleasant 26-year-old male appears his stated age and is in no acute respiratory distress. SKIN: Focused skin assessment warm/dry. HEAD: Atraumatic. Normocephalic. EYES: Pupils equal and round. No scleral icterus. No injection or drainage. ENT: No nasal bleeding or discharge. Mucous membranes pink and moist. NECK: Trachea midline. No JVD. CARDIOVASCULAR: Regular rate and rhythm. No murmur appreciated. RESPIRATORY: No accessory muscle use. Clear to auscultation. Breath sounds equal bilaterally. GASTROINTESTINAL: Abdomen soft, non-tender, nondistended. No epigastric tenderness. Negative Murguia's. Negative McBurney's. MUSCULOSKELETAL: No obvious deformities. No clubbing. No cyanosis. No edema. NEUROLOGICAL: Awake and alert. No obvious cranial nerve deficits. Motor grossly within normal limits. Normal speech. PSYCHIATRIC: Appropriate mood and affect; insight and judgment normal. Data Data Last Documented VS Vital Signs Date Time Temp Pulse Resp B/P (MAP) Pulse Ox O2 Delivery O2 Flow Rate FiO2 05/09/17 19:37 98.3 71 16 149/73 (98) 100 Room Air Orders Orders Chest, Pa & Lat (05/09/17 ) Electrocardiogram (05/09/17 ) Electrocardiogram (05/09/17 20:38) Ckmb (Isoenzyme) Profile (05/09/17 20:38) Complete Blood Count With Diff (05/09/17 20:38) Comprehensive Metabolic Panel (05/09/17 20:38) Troponin I (05/09/17 20:38) Lipase (05/09/17 20:38) Ecg Monitoring (05/09/17 20:38) Iv Access Insert/Monitor (05/09/17 20:38) Oximetry (05/09/17 20:38) Sodium Chloride 0.9% Flush (Ns Flush) (05/09/17 20:45) Famotidine Inj (Pepcid Inj) (05/09/17 20:45) Al-Mag Hy-Si 40-40-4 Mg/Ml Liq (Mag-Al P (05/09/17 20:45) Lidocaine 2% Viscous (Xylocaine 2% Visco (05/09/17 20:45) CKMB (05/09/17 21:20) CKMB% (05/09/17 21:20) Labs Laboratory Tests Test 05/09/17 21:20 White Blood Count 7.9 TH/MM3 Red Blood Count 4.81 MIL/MM3 Hemoglobin 14.0 GM/DL Hematocrit 42.2 % Mean Corpuscular Volume 87.8 FL Mean Corpuscular Hemoglobin 29.1 PG Mean Corpuscular Hemoglobin Concent 33.2 % Red Cell Distribution Width 13.5 % Platelet Count 226 TH/MM3 Mean Platelet Volume 7.0 FL Neutrophils (%) (Auto) 69.3 % Lymphocytes (%) (Auto) 18.9 % Monocytes (%) (Auto) 7.8 % Eosinophils (%) (Auto) 3.2 % Basophils (%) (Auto) 0.8 % Neutrophils # (Auto) 5.5 TH/MM3 Lymphocytes # (Auto) 1.5 TH/MM3 Monocytes # (Auto) 0.6 TH/MM3 Eosinophils # (Auto) 0.3 TH/MM3 Basophils # (Auto) 0.1 TH/MM3 CBC Comment DIFF FINAL Differential Comment Blood Urea Nitrogen 17 MG/DL Creatinine 1.58 MG/DL Random Glucose 75 MG/DL Total Protein 7.9 GM/DL Albumin 4.1 GM/DL Calcium Level 9.4 MG/DL Alkaline Phosphatase 104 U/L Aspartate Amino Transf (AST/SGOT) 26 U/L Alanine Aminotransferase (ALT/SGPT) 34 U/L Total Bilirubin 0.3 MG/DL Sodium Level 143 MEQ/L Potassium Level 4.2 MEQ/L Chloride Level 107 MEQ/L Carbon Dioxide Level 27.6 MEQ/L Anion Gap 8 MEQ/L Estimat Glomerular Filtration Rate 65 ML/MIN Total Creatine Kinase 279 U/L Creatine Kinase MB 0.9 NG/ML Troponin I LESS THAN 0.02 NG/ML Lipase 82 U/L MDM Medical Decision Making Medical Screen Exam Complete: Yes Emergency Medical Condition: Yes Medical Record Reviewed: Yes Interpretation(s) Chest x-ray reveals no acute cardiopulmonary disease EKG reveals sinus rhythm with sinus arrhythmia. Rate 60. Short KS interval. No evidence of delta wave. RSR prime in V1. Laboratory Tests Test 05/09/17 21:20 White Blood Count 7.9 TH/MM3 Red Blood Count 4.81 MIL/MM3 Hemoglobin 14.0 GM/DL Hematocrit 42.2 % Mean Corpuscular Volume 87.8 FL Mean Corpuscular Hemoglobin 29.1 PG Mean Corpuscular Hemoglobin Concent 33.2 % Red Cell Distribution Width 13.5 % Platelet Count 226 TH/MM3 Mean Platelet Volume 7.0 FL Neutrophils (%) (Auto) 69.3 % Lymphocytes (%) (Auto) 18.9 % Monocytes (%) (Auto) 7.8 % Eosinophils (%) (Auto) 3.2 % Basophils (%) (Auto) 0.8 % Neutrophils # (Auto) 5.5 TH/MM3 Lymphocytes # (Auto) 1.5 TH/MM3 Monocytes # (Auto) 0.6 TH/MM3 Eosinophils # (Auto) 0.3 TH/MM3 Basophils # (Auto) 0.1 TH/MM3 CBC Comment DIFF FINAL Differential Comment Blood Urea Nitrogen 17 MG/DL Creatinine 1.58 MG/DL Random Glucose 75 MG/DL Total Protein 7.9 GM/DL Albumin 4.1 GM/DL Calcium Level 9.4 MG/DL Alkaline Phosphatase 104 U/L Aspartate Amino Transf (AST/SGOT) 26 U/L Alanine Aminotransferase (ALT/SGPT) 34 U/L Total Bilirubin 0.3 MG/DL Sodium Level 143 MEQ/L Potassium Level 4.2 MEQ/L Chloride Level 107 MEQ/L Carbon Dioxide Level 27.6 MEQ/L Anion Gap 8 MEQ/L Estimat Glomerular Filtration Rate 65 ML/MIN Total Creatine Kinase 279 U/L Creatine Kinase MB 0.9 NG/ML Troponin I LESS THAN 0.02 NG/ML Lipase 82 U/L Differential Diagnosis Differential diagnosis includes pleurisy, GERD, esophageal spasm, gastritis, pericarditis, myocarditis, pulmonary embolism, ACS. Narrative Course IV was established, labs are drawn and sent, and the patient was placed on cardiac telemetry monitoring and continuous pulse oximetry monitoring. EKG was ordered and interpreted. Chest x-ray was obtained. The patient was administered Pepcid and a GI cocktail. I reviewed the EMR, he has had a previous d-dimer which was negative at 0.[address] pulmonary angiogram which was negative. I doubt this is PE related. The patient does have symptoms worsen lying supine, is substernal, baby related to GERD/reflux. Therefore, the patient was administered Pepcid and a GI cocktail to evaluate for relief of symptoms. The patient's LFTs and lipase unremarkable. Troponin and CPK are unremarkable. The patient was reevaluated at 10:30 PM. The patient 's symptoms resolved after the GI cocktail and Pepcid. The patient will be placed on a proton pump inhibitor. He is advised to sit upright after eating, symptoms persist greater than 6 weeks, is advised to follow-up with gastroenterology for outpatient follow-up. Diagnosis Primary Impression: Atypical chest pain Additional Impression: GERD (gastroesophageal reflux disease) Qualified Codes: K21.9 - Gastro-esophageal reflux disease without esophagitis Patient Instructions: General Instructions Additional Instructions: Prilosec as directed. Follow-up with your primary physician. Follow-up with outpatient GI as needed. Return if symptoms worsen or progress. Sit upright after eating for 30 minutes. Avoid peppermint, spearmint, and alcohol. Avoid nicotine. Med/Other Pt SpecificInfo: Prescription(s) given Scripts Omeprazole (Omeprazole) 40 Mg Cap 40 MG PO DAILY for 45 Days, #45 CAP 0 Refills Prov: Kojo Ricardo MD 05/09/17 Disposition: 01 DISCHARGE HOME Condition: Stable Kojo Ricardo MD May 09, 2017 20:43
[2017-05-09] MEDS ORDERED: SODIUM CHLORIDE 0.9% FLUSH 10 ML FLUSH IVF PRN (20:45)
[2017-05-09] MEDS ORDERED: FAMOTIDINE 20 MG/2 ML VIAL IV PUSH ONE (20:45)
[2017-05-09] MEDS ORDERED: LIDOCAINE VISCOUS 2% SOLN 15 ML UDC PO ONE (20:45)
[2017-05-09] MEDS ORDERED: ALUMINUM/MAGNESIUM/SIMETH 30 ML CUP PO ONE (20:45)
[2017-05-09 21:48] LABS: AUTOMATED NEUTROPHIL # 5.5 TH/MM3 (1.8-7.7); BASOPHIL # 0.1 TH/MM3 (0-0.2); BASOPHIL % 0.8 % (0.0-2.0); EOSINOPHIL # 0.3 TH/MM3 (0-0.4); EOSINOPHIL % 3.2 % (0.0-4.0); HEMATOCRIT 42.2 % (39.0-51.0); LYMPH % 18.9 % (9.0-44.0); LYMPHOCYTE # 1.5 TH/MM3 (1.0-4.8); MEAN CELL VOLUME 87.8 FL (80.0-100.0); MEAN CORPUSCULAR HEMOGLOBIN 29.1 PG (27.0-34.0); MEAN CORPUSCULAR HGB CONC 33.2 % (32.0-36.0); MONO % 7.8 % (0.0-8.0); MONOCYTE # 0.6 TH/MM3 (0-0.9); NEUT % 69.3 % (16.0-70.0); PLATELET COUNT 226 TH/MM3 (150-450); RED BLOOD COUNT 4.81 MIL/MM3 (4.50-5.90); RED CELL DISTRIBUTION WIDTH 13.5 % (11.6-17.2); WHITE BLOOD COUNT 7.9 TH/MM3 (4.0-11.0)
[2017-05-09 22:12] LABS: ALBUMIN 4.1 GM/DL (3.4-5.0); AST (GOT) 26 U/L (15-37); BICARBONATE 27.6 MEQ/L (21.0-32.0); BLOOD UREA NITROGEN 17 MG/DL (7-18); CALCIUM 9.4 MG/DL (8.5-10.1); CHLORIDE 107 MEQ/L (98-107); CREATININE 1.58 MG/DL (0.60-1.30); GLOMERULAR FILTRATION RATE 65 ML/MIN (>89); GLUCOSE,RANDOM 75 MG/DL (74-106); LIPASE 82 U/L (73-393); SODIUM (NA) 143 MEQ/L (136-145)
[2017-05-09 22:13] LABS: ALT (GPT) 34 U/L (12-78)
[2017-05-09 22:17] LABS: ALKALINE PHOSPHATASE 104 U/L (45-117); TOTAL BILIRUBIN ADULT 0.3 MG/DL (0.2-1.0); TOTAL PROTEIN 7.9 GM/DL (6.4-8.2); TROPONIN I LESS THAN 0.02 NG/ML (0.02-0.05)
[2017-05-09 22:30] VITALS: BP 108/65; PULSE 55; RESP 16; O2SAT 100
[2017-05-09] MEDS ORDERED: OMEP40CA2 PO (22:36)
--- NOTE | 2017-05-10 09:34 | EKG ---
Date Performed: 05/09/2017 Time Performed: 21:07:52 PTAGE: 26 years EKG: Sinus rhythm WITH SINUS ARRHYTHMIA WITH SHORT NH INTERVAL POSSIBLE RIGHT VENTRICULAR CONDUCTION DELAY BORDERLINE ECG No significant change from prior electrocardiogram. PREVIOUS TRACING : 03/14/2017 01.37 DOCTOR: Maykel Morris Interpretating Date/Time 05/10/2017 09:33:01
== END 2017-05-09 22:58 | disposition home or self-care (01) ==
LOC: NEPD 19:35
DX: R07.89 Other chest pain (principal); K21.9 Gastro-esophageal reflux disease without esophagitis
CPT/HCPCS: 71020; 80053; 82550; 82552; 83690; 84484; 85025; 93005; 96374